=== PATIENT | female | born 1980 | race Caucasian/White ===

== ENCOUNTER 2017-07-30 09:12 | Emergency (ER) | payer OTHER ==
[~2017-07-30] VITALS: Ht 157.5 cm; Wt 63.3 kg
[2017-07-30 09:17] VITALS: BP 108/74
--- NOTE | 2017-07-30 09:26 | NUR ---
PATIENT PRESENTS TO ED WITH COMPLAINTS OF RASH ON GLUTE. PATIENT STATES SHE GOT BIT BY A SPIDER ON HER BUTT. BUMPS APPEAR RAISED AND RED IN THE GLUTEAL DIVIDE. SHE REPORTS PAIN 10/10. DENIES N/V/D; SKIN IS PINK/WARM/DRY; AAOX4 WITH EVEN AND STEADY GAIT; LUNGS CLEAR BL; HR EVEN AND REGULAR; PT DENIES ANY FEVER, CP, SOB, OR COUGH AT THIS TIME; VSS; PATIENT POSITIONED FOR COMFORT; HOB ELEVATED; BEDRAILS UP X1; BED DOWN. ER MD MADE AWARE OF PT STATUS.
[2017-07-30] MEDS ORDERED: SULFAMETH/TRIMETH DS 800/160MG 1 TAB PO ONE (10:20)
[2017-07-30] MEDS ORDERED: KETOROLAC 30 MG/ML VIAL IM ONE (10:20)
--- NOTE | 2017-07-30 10:30 | NUR ---
Patient appears to be resting comfortably in bed. Vital Signs within normal limits. Respirations even and unlabored.
[2017-07-30 11:08] VITALS: BP 99/61
--- NOTE | 2017-07-30 11:08 | NUR ---
Patient discharged with v/s stable. Written and verbal after care instructions given and explained. Patient alert, oriented and verbalized understanding of instructions. Ambulatory with steady gait. All questions addressed prior to discharge. ID band removed. Patient advised to follow up with PMD. Rx of KEFLEX, BACTRIM, NORCO, MUPIROCIN, AND HIBICLENS given. Patient educated on indication of medication including possible reaction and side effects. Opportunity to ask questions provided and answered.
== END 2017-07-30 11:08 | disposition home or self-care (01) ==
LOC: MED 09:12
DX: L73.8 Other specified follicular disorders (principal); B95.62 Methicillin resistant Staphylococcus aureus infection as the cause of diseases classified elsewhere
CPT/HCPCS: 96372; 99283; J1885